=== PATIENT | female | born 1990 | race Caucasian/White ===

== ENCOUNTER 2016-08-03 00:03 | Emergency (ER) | payer OTHER ==
[~2016-08-03] VITALS: Ht 157.5 cm; Wt 69.4 kg
[~2016-08-03 00:03] MED LIST: COLA100C3 PO; FERR325T3 PO; MOTR200T44 PO; PRENTAB9 PO; TYLE325T5 PO; ZOLO50TA PO
[2016-08-03] MEDS ORDERED: SERT-138 PO (00:15)
[2016-08-03] MEDS ORDERED: BUSP10TA PO (00:15)
[2016-08-03] MEDS ORDERED: KETOROLAC 30 MG/ML VIAL (J1885) IV ONE (02:00)
[2016-08-03] MEDS ORDERED: NS 1,000 ML IV ONE ×3 (02:00→04:30)
[2016-08-03] MEDS ORDERED: MORPHINE 4 MG/ML 1ML SYRINGE IV ONE ×2 (02:00→04:30)
[2016-08-03 02:28] LABS: BASO % 0.3 % (0.0-1.0); EOS # 0.1 K/mm3 (0.0-0.50); EOS % 0.8 % (0.0-3.0); LARGE UNSTAINED CELL # 0.1 K/mm3 (0.0-0.4); LARGE UNSTAINED CELL % 0.5 % (0.0-4.0); LYMPH % 14.6 % (24.0-44.0); MEAN CORPUSCULAR HEMOGLOBIN 28.5 pg (27.0-33.0); MEAN CORPUSCULAR HGB CONC 33.4 g/dl (32.0-36.5); MEAN CORPUSCULAR VOLUME 85.4 fl (80.0-96.0); MONO # 0.4 K/mm3 (0.0-0.8); MONO % 3.1 % (0.0-5.0); NEUTROPHILS # 10.7 K/mm3 (1.8-7.7); NEUTROPHILS % 80.8 % (36.0-66.0); PLATELET COUNT, AUTOMATED 234 k/mm3 (150-450); RED CELL DISTRIBUTION WIDTH 12.5 % (11.5-14.5); WHITE BLOOD COUNT 13.2 K/mm3 (4.0-10.0)
[2016-08-03 02:42] LABS: ANION GAP 8 MEQ/L (8-16); BLOOD UREA NITROGEN 15 MG/DL (7-18); CALCIUM LEVEL 8.5 MG/DL (8.5-10.1); CARBON DIOXIDE LEVEL 28 MEQ/L (21-32); CHLORIDE LEVEL 105 MEQ/L (98-107); GLOMERULAR FILTRATION RATE > 60.0 (>60); GLUCOSE, FASTING 121 MG/DL (70-105); POTASSIUM SERUM 3.9 MEQ/L (3.5-5.1); SODIUM LEVEL 141 MEQ/L (136-145)
[2016-08-03] MEDS ORDERED: HYDROmorphone HCL 1 MG/ML SYRINGE (J1170) IV ONE (03:15)
[2016-08-03] MEDS ORDERED: TAMSULOSIN 0.4 MG CAP PO ONE (03:15)
[2016-08-03] MEDS ORDERED: PERC5TAB6 PO (06:05)
[2016-08-03] MEDS ORDERED: KETO10TAB PO (06:31)
[2016-08-03 06:51] VITALS: BP 125/75
== END 2016-08-03 06:54 | disposition home or self-care (01) ==
LOC: M ED 02:48
DX: N13.2 Hydronephrosis with renal and ureteral calculous obstruction (principal); F32.9 Major depressive disorder, single episode, unspecified
CPT/HCPCS: 74176; 80048; 81001; 81025; 85025; 87086; 96361; 96374; 96375; 96376; 99283; J1170; J1885

== ENCOUNTER → 2016-08-21 | Outpatient (REF) | payer OTHER ==
[~2016-08-21] MED LIST changes: +BUSP10TA PO; +KETO10TAB PO; +PERC5TAB6 PO; +SERT-138 PO
== END ==
LOC: M SMT 17:17
PROVIDERS: ATTEND Urology
DX: N20.0 Calculus of kidney (principal)

== ENCOUNTER → 2016-08-22 | Outpatient (CLI) | payer OTHER ==
[~2016-08-22] MED LIST changes: -COLA100C3 PO; +COLA100C5 PO; +PERC5TAB12 PO; -PERC5TAB6 PO
--- NOTE | 2016-08-22 14:19 | REP ---
Clinical: Nephrolithiasis. Technique: Single supine view of the abdomen and pelvis. Findings: Evaluation of the urinary tract system is limited. No obvious nephrolithiasis noted. Bowel gas pattern is nonspecific. No organomegaly. Skeletal structures intact. Impression: No obvious urinary tract calcifications appreciated. Signed by Adam Coleman MD 08/22/2016 02:10 P
== END ==
LOC: M SMT 13:03
PROVIDERS: ATTEND Urology
DX: N20.0 Calculus of kidney (principal)

== ENCOUNTER → 2016-09-20 | Outpatient (CLI) | payer OTHER ==
--- NOTE | 2016-09-20 10:49 | REP ---
Right foot four views : There is no fracture or dislocation. Mineralization and joint spaces are normal. There are no calcifications or foreign bodies. Impression: Negative right foot . Signed by David Mora MD 09/20/2016 10:41 A
== END ==
LOC: M LRY 10:19
PROVIDERS: ATTEND Nurse Practitioner Family
DX: S99.921A Unspecified injury of right foot, initial encounter (principal); X58.XXXA Exposure to other specified factors, initial encounter; Y93.9 Activity, unspecified; Y92.9 Unspecified place or not applicable; Y99.8 Other external cause status
CPT/HCPCS: 73630; G0463